=== PATIENT | female | born 1995 | race Two or more races ===

== ENCOUNTER 2020-02-06 06:36 | Emergency (ER) | payer SELFPAY, MEDICAID ==
[~2020-02-06] VITALS: Ht 172.7 cm; Wt 68.0 kg
--- NOTE | 2020-02-06 06:38 | Emergency Room Report ---
History of Present Illness General Chief Complaint: To Be Triaged Present Illness HPI 24-year-old female brought in by PD for fdc check. Complains of her having positive COVID result. Has been experiencing nausea and nonbloody vomiting since yesterday. She is unsure when her last menstrual period was and states she might be . Otherwise denies fever, cough, shortness of breath, chills, diarrhea, hematuria , melena, hematochezia, abdominal pain or back pain The patient's symptoms were gradual onset, severity was moderate, duration since 1 day. Quality: Mild Severity: Denies pain Past medical history: Denies Past surgical history: Denies Smoking: Tobacco Alcohol use: Denies Drug use: Marijuana Review of systems: CONST: No fevers or chills, No night sweats PULMONARY: No productive cough, No shortness of breath CARDIAC: No chest pain, No palpitations GI: + vomiting +nausea, No diarrhea , No melena_or_BRBPR : No dysuria, No hematuria, No discharge NEURO: No new_focal_weakness_or_numbness, No confusion, No vision changes 14 point Review of Systems is otherwise negative except per HPI Physical Exam: GENERAL: Awake_alert_ nontoxic, no acute distress Spo2 98% on RA -normal EYES: Extraocular muscles are intact. Conjunctivae clear. Lids without swelling ENT: External nose and ear normal_in_appearance. Oropharynx clear. Head_ atraumatic, Moist_oral_mucosa NECK: No JVD. No meningismus. No thyromegaly. Supple. Trachea midline RESP: Normal respiratory effort. Symmetric rise. No stridor. Clear_to_ auscultation_No_rales_No_wheezes CARDIAC: Regular rate and regular rhythm on_auscultation No_significant pedal edema. ABDOMEN: Soft. Nondistended. Nontender_No_rebound_or_guarding. MSK: Normal muscle tone, without rigidity. Extremities without asymmetric deformity or swelling. SKIN: Warm and dry. No visible cyanosis or pallor NEUROLOGIC: Alert, oriented x3. Motor_and_sensation_grossly_intact. No truncal ataxia. Gait_normal Psych: Normal mood and affect, normal judgment and insight - COORDINATION OF CARE Case was discussed with: Patient , Patient's Family Any labs that were ordered were interpreted as part of the medical decision making: Medical Decision Making/Plan: DDx: includes COVID-19 / coronavirus infection, URI, bronchitis, viral syndrome , postnasal drip, versus less likely pneumonia, among others. The patient is nontoxic and well-appearing has no URI complaints, shortness of breath, increased work of breathing, or fever The patient exhibits no evidence of respiratory distress. No indication for chest x-ray as she has no complaints at this time. She was recently tested for coronavirus but is still pending her results. I suspect that she has coronavirus because she has had recent household contacts who have been diagnosed. She is refusing rapid COVID swab at this time There is no clinical evidence to suggest pneumonia at this time. The patient's presentation appears consistent with viral syndrome, without any indication for antibiotics. No evidence of ENT emergency, airway patent, tolerating oral liquids and solids. No stridor or difficulty breathing. Tonsils within normal limits, no evidence of swelling, exudate or strep pharyngitis. No indication for empiric antibiotic treatment. Sublingual space soft. The patient was instructed to follow up with their physician and instructed to return if worsens, progressively worsening shortness of breath or difficulty breathing, persistent fever, chest pains or discomfort, inability to keep medication or fluids down with or without vomiting, or any other new, worsening or concerning symptoms Based on the patients presenting signs, symptoms, exam, and risk factors ( living in an area endemic for a coronavirus outbreak = [place]), the patient has been screened for coronavirus infection and is suspected of having COVID 19. Patient was nontoxic with benign vital signs. Patient did not meet admission criteria and was stable for outpatient therapy. Patient was instructed to home quarantine for 14 days or until 3 days after their last fever, whichever is longer. Appropriate precautions were given. She is medically clear for incarceration UA shows mild cystitis. No complaints but bc she is having nausea and vomiting, will treat. Pt got first abx pill here. Recommend keflex x 5 days Strict return precautions given, including but limited to: Patient educated to notify a healthcare professional if they develop further symptoms that include chest pain, palpitations, significant SOB, fever, or other concerning symptoms. Discussed supportive care with rest, hydration, frequent handwashing and Tylenol and Motrin [id number] as needed for pain or fevers. Discussed strict return precautions. Verbal discharge with written instructions were given for COVID-19. Patient is instructed to follow up with their primary care provider in 1-2 days, or return to the ED for worsening symptoms. Return to ED precautions were given. Medical Decision Making Diagnostic Impression: Primary Impression: Nausea & vomiting Additional Impressions: Suspected 2019-nCoV infection Cystitis Disposition: LAW ENFORCEMENT IN CUST Admit Decision Time: 07:17 Condition: Stable Patient Instructions: Nausea and Vomiting, Adult, [id number] Additional Instructions: Medically cleared for fdc. Recommend keflex for mild UTI Recommend zofran for nausea Instructions for patient/die lay out worker: Follow up with your fdc physician in 1 to 2 days. Follow-up with your doctor sooner if your condition requires a more timely clinical reevaluation. Return to the emergency department immediately if you feel that your condition is worsening or if you have any new or concerning symptoms. Review your discharge instructions and take any prescriptions given as instructed. Recommend Zofran as needed for nausea or vomiting Your evaluation suggests that you are suffering from a viral infection producing a viral syndrome. Symptoms of a viral syndrome may include fever, sore throat, headache, body aches and pains, generalized weakness and fatigue, and runny nose. You do not show signs or symptoms suggestive of a serious or life threatening illness. This illness may be caused by a number of different viruses, including Influenza A or B or COVID-19. These viruses are highly contagious and spread rapidly from person to person via coughing and sneezing of the virus or by contaminated surface contact with nasal or other respiratory secretions. These viruses cause a similar combination of signs and symptoms which are typically much more severe than the common cold. Typically they begin with the rapid onset of fever, often high (over 102), body aches, fatigue, headache, and usually upper respiratory tract infections symptoms such as cough , runny nose, and sore throat. The illness typically lasts 7-10 days, with the fever and feelings of weakness and body aches usually lasting 3-5 days. Your own immune system fights off these infections. Only rarely do secondary bacterial infections occur (such as bacterial pneumonia) and can be serious. At this time your symptoms do not appear serious, however, there are limitations to online visits and if you are not improving you may need to be evaluated by a doctor in person and that doctor may need to do additional tests. INSTRUCTIONS: Illnesses such as yours typically resolve on their own with time however you must remember to stay hydrated and drink 2-3 times your normal fluid intake, as fever and your increased metabolism in fighting the infection uses more water. Fever control is important to help you feel better and to help prevent dehydration. Acetaminophen is an excellent choice for fever control and other symptoms (as long as you are not allergic to the medication). Rest is also important in helping your body fight this infection. Over the counter cough and decongestant medications are safe (as long as you dont have uncontrolled high blood pressure) and may help the cough and congestion slightly. As these viruses are highly contagious, good hand washing habits, and covering your cough and sneeze help prevent spread. Fever can be a sign of a serious infection and it is imperative that you go directly to an Emergency Department for serious symptoms such as weakness, confusion, significant shortness of breath, abdominal pain, or severe headache. Close follow up with a physician is important if you are not improving over the next few days or you experience worsening of your symptoms. Although it is impossible to know at this point if you have COVID-19 (the [place] virus), please quarantine yourself and anyone else that is residing with you for the longer of the following time periods: 14 days OR 3 days after the last of your symptoms has resolved CONTACT THE DOCTOR RIGHT AWAY if you develop worsening symptoms such as shortness of breath, chest pain, neck stiffness, confusion or any other new, worsening, or concerning symptoms. For emergencies contact 911 immediately. Deborah Chiang D.O. Feb 06, 2020 06:38
[2020-02-06 06:45] VITALS: BP 132/92
--- NOTE | 2020-02-06 06:45 | NUR ---
ED Nurse Note: brought in by [facility]z c/o shanae since 02/04. pt states she got tested for covid but pending result. denies sob, cp, fever. [facility]z at bedside. pt is in custody for med clearance. vss, nad, aaox, ambulatory, ermd atbedside.
--- NOTE | 2020-02-06 07:01 | NUR ---
ED Nurse Note: URINE COLLECTED AND SENT TO LAB
--- NOTE | 2020-02-06 07:02 | NUR ---
ED Nurse Note: PT REFUSED TO BE SWABBED FOR COVID. ERMD AWARE
--- NOTE | 2020-02-06 07:08 | NUR ---
ED Nurse Note: GAVE REPORT TO TIKI LI
[2020-02-06 07:27] LABS: APPEARANCE,URINE CLEAR; BILIRUBIN, URINE NEGATIVE (NEGATIVE); GLUCOSE, URINE (UA) NEGATIVE (NEGATIVE); KETONES,URINE 1+ (NEGATIVE); LEUKOCYTE ESTERASE ,URINE 2+ (NEGATIVE); NITRITE,URINE NEGATIVE (NEGATIVE); PH,URINE 6 (4.5-8.0); PROTEIN,URINE 2+ (NEGATIVE); UROBILINOGEN,URINE 1 MG/DL (0.0-1.0)
[2020-02-06 07:40] LABS: COLOR,URINE YELLOW
[2020-02-06] MEDS ORDERED: CEPHALEXIN500 MG ORAL (07:50)
[2020-02-06] MEDS ORDERED: ONDANSETRON ODT4 MG BC (07:50)
[2020-02-06 07:53] VITALS: BP 132/92
--- NOTE | 2020-02-06 07:53 | NUR ---
ER DISCHARGE NOTE: Patient is cleared to be discharged per ERMD, pt is aox4, on room air, with stable vital signs. assistant distribution manager was given dc and prescription instructions, was able to verbalize understanding, pt id band removed. pt is able to ambulate with steady gait. pt took all belongings. Pt left ED escorted by .
== END 2020-02-06 07:53 ==
LOC: EMR 06:45
DX: R11.2 Nausea with vomiting, unspecified (principal); N30.00 Acute cystitis without hematuria; F12.90 Cannabis use, unspecified, uncomplicated; Z20.828 Contact with and (suspected) exposure to other viral communicable diseases
CPT/HCPCS: 81001; 81025; 99283